=== PATIENT | male | born 1935 | race Caucasian/White ===

== ENCOUNTER 2021-11-30 20:40 | Emergency (ER) | payer BC, MEDICARE ==
[~2021-11-30] VITALS: Ht 177.8 cm; Wt 81.6 kg
--- NOTE | 2021-11-30 20:55 | NUR ---
[id number] FROM HOME C/O DIZZINESS EPISODE TONIGHT. HX DIZZINESS X3 MONTHS. PATIENT IS AAOX4. ABLE TO MAKE NEEDS KNOWN. -SOB, -CP, NOT IN RESP DISTRESS. PATIENT IS PLACED COMFORTABLY IN BED. VITALS CHECKED.
--- NOTE | 2021-11-30 20:58 | NUR ---
SEEN BY DR HARRINGTON AT BEDSIDE
--- NOTE | 2021-11-30 21:03 | NUR ---
SENIOR GRAPHIC DESIGNER AT BEDSIDE
--- NOTE | 2021-11-30 21:04 | NUR ---
EKG DONE AT BEDSIDE
[2021-11-30 21:19] LABS: BASOPHILS % (AUTO) 0.5 % (0.0-2.0); EOSINOPHILS % (AUTO) 3.9 % (0.0-6.0); HEMATOCRIT 44 % (39-51); HEMOGLOBIN 14.3 g/dL (13.5-17.5); LYMPHOCYTES # (AUTO) 2.1 K/uL (0.8-4.8); MEAN CORPUSCULAR HGB CONC 33 g/dl (31.0-36.0); MEAN CORPUSCULAR VOLUME 99 fL (80-96); MONOCYTES # (AUTO) 1.1 K/uL (0.1-1.30); MONOCYTES % (AUTO) 11.4 % (2.0-12.0); NEUTROPHILS % (AUTO) 62.2 % (43.0-81.0); PLATELET COUNT (AUTO) 240 K/uL (150-450); RED BLOOD CELL COUNT(AUTO) 4.41 MIL/uL (4.5-6.0); WHITE BLOOD COUNT (AUTO) 9.6 K/uL (4.3-11.0)
[2021-11-30 21:30] LABS: CALCIUM, SERUM 8.7 mg/dL (8.5-10.1); CARBON DIOXIDE 28 mmol/L (21-32); CHLORIDE 108 mmol/L (98-107); GLUCOSE 117 mg/dL (74-106); POTASSIUM 3.9 mmol/L (3.5-5.1); SODIUM SERUM 142 mmol/L (136-145); UREA NITROGEN, BLOOD 18 mg/dL (7-18)
--- NOTE | 2021-11-30 22:45 | NUR ---
IOS DEVELOPER AT BEDSIDE
--- NOTE | 2021-12-01 01:23 | NUR ---
PT WILL BE TAKEN HOME VIA [facility] IN LESS THAN TWO HOURS.
--- NOTE | 2021-12-01 01:38 | NUR ---
PATIENT FOR DISCHARGE BUT WE ARE ARRANGING TRANSPORTATION FOR HIM TO BRING HIM BACK HOME
--- NOTE | 2021-12-01 01:52 | NUR ---
Patient discharged to home in stable condition. Written and verbal after care instructions given. Patient verbalizes understanding of instruction.
[2021-12-01 01:55] VITALS: BP 125/61
== END 2021-12-01 01:55 | disposition home or self-care (01) ==
LOC: ER 20:46
DX: R42 Dizziness and giddiness (principal); I10 Essential (primary) hypertension; Z60.2 Problems related to living alone
CPT/HCPCS: 36415; 80048-TC; 84484-TC; 85025-TC

== ENCOUNTER 2023-08-08 23:22 | Emergency (ER) | payer BC ==
[~2023-08-08] VITALS: Ht 177.8 cm; Wt 83.9 kg
[2023-08-09] MEDS ORDERED: ACETAMINOPHEN ES 500 MG TABLET ONE (00:28)
[2023-08-09] MEDS: ACETAMINOPHEN ES 500 MG TABLET PO ONE (00:30)
[2023-08-09] MEDS: KETOROLAC TROMETHAMINE 15 MG/ML VIAL IM ONE (03:30)
[2023-08-09] MEDS ORDERED: KETOROLAC TROMETHAMINE 15 MG/ML VIAL ONE (03:32)
[2023-08-09 06:42] VITALS: BP 133/76; TEMP 98.5; O2SAT 97
== END 2023-08-09 06:43 | disposition home or self-care (01) ==
LOC: ER 23:35
DX: M25.462 Effusion, left knee (principal); M25.562 Pain in left knee; I10 Essential (primary) hypertension; F41.9 Anxiety disorder, unspecified; Z96.652 Presence of left artificial knee joint; Z60.2 Problems related to living alone; W01.0XXA Fall on same level from slipping, tripping and stumbling without subsequent striking against object, initial encounter; Y93.89 Activity, other specified; Y92.89 Other specified places as the place of occurrence of the external cause; Y99.8 Other external cause status
CPT/HCPCS: 29505; 73564; 96372; 99285; A6403; J1885